=== PATIENT | female | born 1975 | race Two or more races ===

== ENCOUNTER 2019-06-16 11:27 | Inpatient (IN) | payer BC, OTHER ==
[~2019-06-16] VITALS: Ht 157.5 cm; Wt 90.7 kg
[2019-06-16] MEDS ORDERED: SODIUM CHLORIDE 0.9% 1,000 ML IV ONE ×2 (12:19→16:00)
[2019-06-16] MEDS ORDERED: ONDANSETRON HCL 4MG/2ML INJ IV STA (12:19)
[2019-06-16] MEDS ORDERED: HYDROCODONE/ACETAMINOPHEN 10/325MG TABLET PO ONE (12:30)
[2019-06-16 12:51] LABS: BASOPHILS % 0.3 % (0.0-2.0); EOSINOPHILS % 0.8 % (0.0-5.0); HEMATOCRIT. 31.7 % (36.0-48.0); HEMOGLOBIN. 10.1 g/dL (12.0-16.0); LYMPHOCYTES % 14.7 % (20.0-50.0); MEAN CORPUSCULAR HEMOGLOBIN 29.5 pg (28.0-32.0); MEAN CORPUSCULAR VOLUME 92.3 fL (81.0-99.0); MEAN PLATELET VOLUME 7.6 fl (7.4-10.4); MONOCYTES % 5.2 % (2.0-8.0); PLATELET 488 x1000/uL (130-400); RED BLOOD CELL COUNT 3.43 mill/uL (4.2-5.4); RED CELL DISTRIBUTION WIDTH 16.2 % (11.6-14.6)
[2019-06-16 12:53] LABS: CLARITY URINE CLOUDY (CLEAR); COLOR URINE YELLOW (YELLOW); KETONES URINE NEGATIVE (NEGATIVE); LEUKOCYTE ESTERASE URINE NEGATIVE (NEGATIVE); NITRITE URINE NEGATIVE (NEGATIVE); OCCULT BLOOD URINE NEGATIVE (NEGATIVE); PH URINE 5.5 (4.5-8.0); PROTEIN URINE NEGATIVE (NEGATIVE); SPECIFIC GRAVITY URINE 1.021 (1.005-1.030); UROBILINOGEN URINE 0.2 E.U./dL (0.2-1.0)
[2019-06-16 12:53] LABS: CHLORIDE 111 mEq/L (98-107)
[2019-06-16] MEDS ORDERED: METOCLOPRAMIDE HCL 10MG/2ML VIAL IV ONE (16:00)
[2019-06-16] MEDS ORDERED: DIPHENHYDRAMINE 50MG/ML VIAL IV ONE (16:00)
[2019-06-16] MEDS ORDERED: DICYCLOMINE HCL 10MG/ML 2ML AMP IM ONE (16:00)
[2019-06-16] MEDS ORDERED: CEFTRIAXONE 1 G PREMIX 50 ML IV SCH ×2 (19:00→19:15)
[2019-06-16] MEDS ORDERED: IPRATROPIUM/ALBUTEROL 0.5-3(2.5)MG/3ML NEB HHN PRN (19:00)
[2019-06-16] MEDS ORDERED: DIPHENHYDRAMINE 50MG/ML VIAL IV PRN (19:00)
[2019-06-16] MEDS ORDERED: MAGNESIUM/ALUMINUM HYDROXIDE/SIMETHICONE 30ML UDC PO PRN (19:00)
[2019-06-16] MEDS ORDERED: CLONIDINE 0.1MG TABLET PO PRN (19:00)
[2019-06-16] MEDS ORDERED: ACETAMINOPHEN 325MG TABLET PO PRN (19:00)
[2019-06-16] MEDS ORDERED: DOCUSATE SODIUM 100MG CAPSULE PO PRN (19:00)
[2019-06-16] MEDS ORDERED: GUAIFENESIN 200MG/10ML SUGAR FREE UDC PO PRN (19:00)
[2019-06-16] MEDS: ONDANSETRON HCL 4MG/2ML INJ IV PRN (20:19)
[2019-06-16] MEDS: LORAZEPAM 2MG/ML CPJ IV PRN (20:53)
[2019-06-16] MEDS: HYDROCODONE/ACETAMINOPHEN 10/325MG TABLET PO PRN (21:53)
[2019-06-16 22:30] VITALS: BP 119/59
[2019-06-16] MEDS ORDERED: CARI250T MT (23:07)
[2019-06-16] MEDS ORDERED: KEPP250 MT (23:11)
[2019-06-16] MEDS ORDERED: ALPR2TAB2 MT (23:11)
[2019-06-17] VITALS: BP 119/56
[2019-06-17] MEDS: SODIUM CHLORIDE 0.45% 1,000 ML IV SCH (01:01)
[2019-06-17] MEDS: CEFTRIAXONE 1 G PREMIX 50 ML IV SCH (01:01)
[2019-06-17] MEDS: SODIUM CHLORIDE 0.9% INJ 3ML FLUSH IVF SCH ×4 (01:02→21:28)
[2019-06-17] MEDS: ONDANSETRON HCL 4MG/2ML INJ IV PRN ×3 (03:59→19:44)
[2019-06-17] MEDS: HYDROCODONE/ACETAMINOPHEN 10/325MG TABLET PO PRN (03:59)
[2019-06-17 04:00] VITALS: BP 91/56
[2019-06-17 07:22] LABS: CHLORIDE 112 mEq/L (98-107)
[2019-06-17 07:27] LABS: BASOPHILS % 0.3 % (0.0-2.0); EOSINOPHILS % 0.9 % (0.0-5.0); HEMATOCRIT. 29.2 % (36.0-48.0); HEMOGLOBIN. 9.5 g/dL (12.0-16.0); LYMPHOCYTES % 24.8 % (20.0-50.0); MEAN CORPUSCULAR HEMOGLOBIN 29.7 pg (28.0-32.0); MONOCYTES % 6.6 % (2.0-8.0); NEUTROPHILS % 67.4 % (40.0-76.0); PLATELET 449 x1000/uL (130-400); RED CELL DISTRIBUTION WIDTH 15.6 % (11.6-14.6)
[2019-06-17 08:00] VITALS: BP 109/54
[2019-06-17] MEDS: ENOXAPARIN 30MG/0.3ML SYR SUBCUT SCH ×2 (09:01→21:28)
[2019-06-17 12:00] VITALS: BP 108/62
[2019-06-17] MEDS: HYDROMORPHONE HCL/PF 2MG/ML CPJ IV PRN ×2 (12:02→19:44)
[2019-06-17] MEDS ORDERED: ALPRAZOLAM 0.5 MG TABLET PO PRN (12:30)
[2019-06-17] MEDS: LEVETIRACETAM 250MG TABLET PO SCH ×2 (12:45→17:42)
[2019-06-17] MEDS: PANTOPRAZOLE SODIUM 40 MG/VIAL IV SCH (13:22)
[2019-06-17 16:00] VITALS: BP 107/55
[2019-06-17 20:00] VITALS: BP 105/55
[2019-06-18] VITALS: BP 115/64
[2019-06-18] MEDS: CEFTRIAXONE 1 G PREMIX 50 ML IV SCH (00:23)
[2019-06-18] MEDS: LORAZEPAM 2MG/ML CPJ IV PRN ×3 (00:39→12:30)
[2019-06-18] MEDS: ONDANSETRON HCL 4MG/2ML INJ IV PRN ×3 (03:02→15:33)
[2019-06-18] MEDS: HYDROMORPHONE HCL/PF 2MG/ML CPJ IV PRN ×3 (03:03→15:33)
[2019-06-18 04:00] VITALS: BP 115/49
[2019-06-18] MEDS: SODIUM CHLORIDE 0.9% INJ 3ML FLUSH IVF SCH ×2 (05:14→15:33)
[2019-06-18 06:27] LABS: BASOPHILS % 0.4 % (0.0-2.0); EOSINOPHILS % 1.5 % (0.0-5.0); HEMATOCRIT. 28.5 % (36.0-48.0); HEMOGLOBIN. 9.1 g/dL (12.0-16.0); LYMPHOCYTES % 38.6 % (20.0-50.0); MEAN CORPUSCULAR HEMOGLOBIN 29.2 pg (28.0-32.0); MEAN CORPUSCULAR VOLUME 91.8 fL (81.0-99.0); MEAN PLATELET VOLUME 8.1 fl (7.4-10.4); MONOCYTES % 6.3 % (2.0-8.0); NEUTROPHILS % 53.2 % (40.0-76.0); PLATELET 428 x1000/uL (130-400); RED BLOOD CELL COUNT 3.11 mill/uL (4.2-5.4); RED CELL DISTRIBUTION WIDTH 15.7 % (11.6-14.6)
[2019-06-18 06:29] LABS: CHLORIDE 109 mEq/L (98-107)
[2019-06-18 08:00] VITALS: BP 111/63
[2019-06-18] MEDS: ENOXAPARIN 30MG/0.3ML SYR SUBCUT SCH (09:00)
[2019-06-18] MEDS: LEVETIRACETAM 250MG TABLET PO SCH ×2 (09:03→12:30)
[2019-06-18] MEDS: PANTOPRAZOLE SODIUM 40 MG/VIAL IV SCH (09:03)
[2019-06-18] MEDS: SODIUM CHLORIDE 0.45% 1,000 ML IV SCH (11:47)
[2019-06-18 12:00] VITALS: BP 117/64
[2019-06-18] MEDS ORDERED: [UNRECOGNIZED DRUG - CODE] PO (13:04)
[2019-06-18] MEDS ORDERED: SUCR1TAB MT (13:04)
[2019-06-18] MEDS ORDERED: FLUR30CA13 PO (13:04)
[2019-06-18] MEDS ORDERED: DICY10SO PO (13:04)
[2019-06-18] MEDS ORDERED: PROC25SU2 RC (13:04)
[2019-06-18] MEDS ORDERED: ACET12.53 PO (13:04)
[2019-06-18] MEDS ORDERED: PROT40 PO (13:04)
[2019-06-18] MEDS ORDERED: METO-293 MT (13:04)
[2019-06-18 16:00] VITALS: BP 112/62
[2019-06-18 16:02] VITALS: BP 163/81
[2019-06-18] MEDS: HYDROCODONE/ACETAMINOPHEN 10/325MG TABLET PO PRN (16:02)
[2019-06-18] MEDS ORDERED: ONDANSETRON HCL 4MG/2ML INJ IV PRN (18:00)
== END 2019-06-18 17:27 | disposition home or self-care (01) | DRG 641 ==
LOC: ER 11:27 → 6EST 17:44 → EDBEDREQ 17:46 → ENRESERV 22:09
PROVIDERS: ADMIT Internal Medicine; ATTEND Internal Medicine
DX: E86.0 Dehydration (principal); N39.0 Urinary tract infection, site not specified; R65.10 Systemic inflammatory response syndrome (SIRS) of non-infectious origin without acute organ dysfunction; R10.9 Unspecified abdominal pain; C53.9 Malignant neoplasm of cervix uteri, unspecified; D64.9 Anemia, unspecified; K29.70 Gastritis, unspecified, without bleeding; F41.9 Anxiety disorder, unspecified; G43.909 Migraine, unspecified, not intractable, without status migrainosus; Z90.49 Acquired absence of other specified parts of digestive tract; Z85.41 Personal history of malignant neoplasm of cervix uteri; Z90.710 Acquired absence of both cervix and uterus; Z79.899 Other long term (current) drug therapy; Z88.5 Allergy status to narcotic agent; Z88.8 Allergy status to other drugs, medicaments and biological substances
CPT/HCPCS: 36415; 74176; 80048; 80053; 81003; 85025; 96374; 99285; C9113; J0500; J0696; J1170; J1200; J1650; J2060; J2405; J2765; J7030